=== PATIENT | female | born 1980 | race American Indian/Alaskan Native ===

== ENCOUNTER 2017-07-12 19:55 | Emergency (ER) | payer MEDICARE, MEDICAID ==
[~2017-07-12] VITALS: Ht 154.9 cm; Wt 146.9 kg
[~2017-07-12 19:55] MED LIST: ALBU18HF2 INH; ALBU8HFA PO; DIPH25CA83 PO; FAMO-128 PO; HYDR-569 PO; IBUP-1986 PO; NEBU-129 MC; ONDA4TAB12 PO; PANT-47 PO; PRED10TA PO; PRED50TA PO
[2017-07-12 20:03] VITALS: BP 157/107
[2017-07-12] MEDS ORDERED: HYDROcodone/acetaminophen 5mg/325mg tablet PO ONE (22:05)
[2017-07-12] MEDS ORDERED: ketorolac trometh inj. 60 MG/2 ML VIAL IM ONE (22:05)
[2017-07-12] MEDS ORDERED: DICL50TA8 PO (22:09)
== END 2017-07-12 22:37 | disposition home or self-care (01) ==
LOC: ER 19:56
DX: M25.561 Pain in right knee (principal); I10 Essential (primary) hypertension; J45.909 Unspecified asthma, uncomplicated; Z90.49 Acquired absence of other specified parts of digestive tract; Z95.1 Presence of aortocoronary bypass graft; Z79.899 Other long term (current) drug therapy
CPT/HCPCS: 73564; 96372; 99284; J1885

== ENCOUNTER 2017-09-25 17:48 | Inpatient (IN) | payer MEDICARE, MEDICAID ==
[~2017-09-25] VITALS: Ht 545.9 cm; Wt 150.0 kg
[~2017-09-25 17:48] MED LIST changes: +DICL50TA8 PO
[2017-09-25] MEDS ORDERED: methylPREDNISolone sod succ 125mg/2ml vial IV ONE (18:10)
[2017-09-25] MEDS ORDERED: magnesium 2GM in 50ml NS 50 ML IV ONE (18:10)
[2017-09-25] MEDS ORDERED: albuterol 2.5 MG/3 ML nebule CONTNEB PRN (18:10)
[2017-09-25] MEDS ORDERED: PRED20TA PO (18:29)
[2017-09-25] MEDS ORDERED: terbutaline 1 mg/ml inj SQ STA (19:01)
[2017-09-25] MEDS ORDERED: ipratropium/albuterol 3ml nebule NEB ONE (19:20)
[2017-09-25] MEDS ORDERED: CETI-102 PO (20:03)
[2017-09-25] MEDS ORDERED: DILT120C62 PO (20:03)
[2017-09-25] MEDS ORDERED: FLUT16SP2 BOTHNARES (20:03)
[2017-09-25] MEDS ORDERED: albuterol 2.5 MG/3 ML nebule NEB ONE (21:35)
[2017-09-25] MEDS ORDERED: acetaminophen 325mg tablet PO PRN (22:00)
[2017-09-25] MEDS ORDERED: magnesium hydroxide 30ml (MOM) UD suspension PO PRN (22:00)
[2017-09-25] MEDS ORDERED: ondansetron/PF 4mg/2ml inj IV PRN (22:00)
[2017-09-25] MEDS ORDERED: mag hydrox/Alum hydrox/simeth 30ml oral suspension PO PRN (22:00)
[2017-09-25 23:00] VITALS: BP 159/90
[2017-09-25] MEDS: methylPREDNISolone sod succ/PF 40mg inj. IV SCH (23:56)
[2017-09-25] MEDS: HYDROcodone/acetaminophen 5mg/325mg tablet PO PRN (23:58)
[2017-09-26] MEDS: albuterol 2.5 MG/3 ML nebule NEB PRN ×3 (00:20→12:04)
[2017-09-26 02:00] VITALS: BP 135/77
[2017-09-26 05:22] LABS: BASOPHILS % (AUTO) 0 % (0-1); EOSINOPHILS # (AUTO) 0.1 X10'3 (0-0.9); HEMATOCRIT 42.1 % (35.0-45.0); HEMOGLOBIN 14.3 g/dl (12.0-16.0); LYMPHOCYTES % (AUTO) 8.1 % (21-51); MEAN CORPUSCULAR HEMOGLOBIN 29.1 PG (27.0-31.0); MEAN CORPUSCULAR HGB CONC 33.9 % (33.0-36.5); MEAN CORPUSCULAR VOLUME 85.9 FL (78-98); MEAN PLATELET VOLUME 10.6 FL (7.4-10.4); MONOCYTES % (AUTO) 0.3 % (2-12); NEUTROPHILS # (AUTO) 11.6 X10'3 (1.8-7.7); NEUTROPHILS % (AUTO) 90.6 % (42-75); PLATELET COUNT 221 X10'3 (140-440); RED CELL DISTRIBUTION WIDTH 13.7 % (11.5-14.5); WHITE BLOOD COUNT 12.8 X10'3 (4.5-11.0)
[2017-09-26 05:53] LABS: ALANINE AMINOTRANSFERASE 46 U/L (12-78); ALBUMIN 3.9 G/DL (3.4-5.0); ALKALINE PHOSPHATASE 89 IU/L (46-116); ANION GAP 12 (8-16); ASPARTATE AMINO TRANSFERASE 13 U/L (10-37); BILIRUBIN,TOTAL 0.4 MG/DL (0.1-1.0); BLOOD UREA NITROGEN 10 MG/DL (7-18); BUN/CREATININE RATIO 9.3 (6.6-38.0); CALCIUM 9.8 MG/DL (8.5-10.1); CHLORIDE 104 MMOL/L (99-107); CREATININE 1.07 MG/DL (0.40-0.90); GLUCOSE 428 MG/DL (70-104); POTASSIUM 4.5 MMOL/L (3.5-5.1); SODIUM 141 MMOL/L (135-145); eGFR 58 ML/MIN
[2017-09-26 06:00] VITALS: BP 139/82
[2017-09-26] MEDS ORDERED: pantoprazole 40mg Tablet.DR PO SCH (07:30)
[2017-09-26] MEDS ORDERED: fluticasone nasal spray 16GM bottle NS SCH (08:00)
[2017-09-26] MEDS ORDERED: heparin, porcine 5000 units/ml vial SQ SCH (08:00)
[2017-09-26] MEDS ORDERED: diltiazem CD 120mg capsule (once-daily) PO SCH (08:00)
[2017-09-26] MEDS ORDERED: cetirizine 10mg tablet PO SCH (08:00)
[2017-09-26] MEDS: methylPREDNISolone sod succ/PF 40mg inj. IV SCH (08:12)
[2017-09-26] MEDS: HYDROcodone/acetaminophen 5mg/325mg tablet PO PRN (08:21)
[2017-09-26 10:00] VITALS: BP 147/93
[2017-09-26 10:03] LABS: HEMOGLOBIN A1C 7.5 % (4.5-6.2)
[2017-09-26] MEDS ORDERED: insulin Lispro (HumaLOG) vial - multi-dose SQ STA (10:13)
[2017-09-26] MEDS ORDERED: PRED20TA PO (12:48)
== END 2017-09-26 13:35 | disposition left against medical advice (07) | DRG 203 ==
LOC: ER 17:48 → ED HOLD 22:00 → ORTHO 4S 23:00
PROVIDERS: ADMIT Internal Medicine; ATTEND Family Medicine
DX: J45.901 Unspecified asthma with (acute) exacerbation (principal); I10 Essential (primary) hypertension; R73.9 Hyperglycemia, unspecified; Z53.21 Procedure and treatment not carried out due to patient leaving prior to being seen by health care provider; Z90.49 Acquired absence of other specified parts of digestive tract; Z88.8 Allergy status to other drugs, medicaments and biological substances; Z79.899 Other long term (current) drug therapy
CPT/HCPCS: 36415; 71045; 80053; 82948; 83036; 85025; 87070; 94640; 94760; 96365; 96372; 96375; 99291; J1644; J2920; J2930; J3105; J3475

== ENCOUNTER 2018-02-06 01:42 | Outpatient (CLI) | payer MEDICARE, MEDICAID ==
[~2018-02-06 01:42] MED LIST changes: -ALBU18HF2 INH; +CETI-102 PO; -DICL50TA8 PO; +DILT120C62 PO; -DIPH25CA83 PO; -FAMO-128 PO; +FLUT16SP2 BOTHNARES; -HYDR-569 PO; -ONDA4TAB12 PO; -PANT-47 PO; -PRED10TA PO; +PRED20TA PO; -PRED50TA PO
== END 2018-02-06 23:59 | disposition home or self-care (01) ==
LOC: DIABETIC 01:42
PROVIDERS: ATTEND Surgery
DX: E66.01 Morbid (severe) obesity due to excess calories (principal); E11.9 Type 2 diabetes mellitus without complications; G47.30 Sleep apnea, unspecified; I10 Essential (primary) hypertension; J45.909 Unspecified asthma, uncomplicated
CPT/HCPCS: 97802

== ENCOUNTER 2018-03-06 08:32 | Outpatient (CLI) | payer MEDICARE, MEDICAID | END 2018-03-06 23:59 | disposition home or self-care (01) | LOC: DIABETIC 08:32 | PROVIDERS: ATTEND Surgery | DX: E66.01 Morbid (severe) obesity due to excess calories (principal); E11.9 Type 2 diabetes mellitus without complications; G47.30 Sleep apnea, unspecified; I10 Essential (primary) hypertension; J45.909 Unspecified asthma, uncomplicated | CPT/HCPCS: 97802 ==

== ENCOUNTER 2018-04-01 01:38 | Outpatient (CLI) | payer MEDICARE, MEDICAID | END 2018-04-01 23:59 | disposition home or self-care (01) | LOC: DIABETIC 01:38 | PROVIDERS: ATTEND Surgery | DX: E66.01 Morbid (severe) obesity due to excess calories (principal); E11.9 Type 2 diabetes mellitus without complications; G47.30 Sleep apnea, unspecified; I10 Essential (primary) hypertension; J45.909 Unspecified asthma, uncomplicated | CPT/HCPCS: 97802 ==

== ENCOUNTER 2018-04-25 07:34 | Emergency (ER) | payer MEDICARE, MEDICAID ==
[~2018-04-25] VITALS: Ht 154.9 cm; Wt 142.0 kg
[2018-04-25 07:37] VITALS: BP 163/106
--- NOTE | 2018-04-25 07:45 | NUR ---
dr. brush at bedside.
[2018-04-25] MEDS ORDERED: ibuprofen tablet 400 MG TABLET PO ONE (07:55)
[2018-04-25] MEDS ORDERED: BENZ-16 PO (07:55)
== END 2018-04-25 08:00 | disposition home or self-care (01) ==
LOC: ER 07:35
DX: J06.9 Acute upper respiratory infection, unspecified (principal); I10 Essential (primary) hypertension; J45.909 Unspecified asthma, uncomplicated; Z90.49 Acquired absence of other specified parts of digestive tract; Z88.8 Allergy status to other drugs, medicaments and biological substances; Z79.899 Other long term (current) drug therapy
CPT/HCPCS: 99283

== ENCOUNTER 2018-06-26 00:03 | Emergency (ER) | payer MEDICARE, MEDICAID ==
[~2018-06-26] VITALS: Ht 154.9 cm; Wt 121.5 kg
[2018-06-26] MEDS ORDERED: ondansetron/PF 4mg/2ml inj IV ONE (01:45)
[2018-06-26] MEDS ORDERED: ketorolac trometh. 30mg/ml inj. IV ONE (01:45)
[2018-06-26] MEDS ORDERED: normal saline 1000ML IV soln IVB ONE (01:45)
[2018-06-26] MEDS: morphine 4 MG/ML inj SYRINge IV PRN ×2 (02:04→02:52)
[2018-06-26 02:18] LABS: URINE HCG NEGATIVE (NEG)
[2018-06-26 02:42] LABS: ALANINE AMINOTRANSFERASE 124 U/L (12-78); ALBUMIN 3.9 G/DL (3.4-5.0); ALBUMIN/GLOBULIN RATIO 1.3 (1.1-1.5); ALKALINE PHOSPHATASE 85 IU/L (46-116); ANION GAP 12 (8-16); ASPARTATE AMINO TRANSFERASE 44 U/L (10-37); BILIRUBIN,TOTAL 0.9 MG/DL (0.1-1.0); BLOOD UREA NITROGEN 8 MG/DL (7-18); BUN/CREATININE RATIO 10.7 (6.6-38.0); CALCIUM 9.5 MG/DL (8.5-10.1); CHLORIDE 100 MMOL/L (99-107); CREATININE 0.75 MG/DL (0.40-0.90); GLUCOSE 133 MG/DL (70-104); LIPASE 109 U/L (73-393); POTASSIUM 3.2 MMOL/L (3.5-5.1); SODIUM 140 MMOL/L (135-145); TOTAL CARBON DIOXIDE 27.7 MMOL/L (24-32); eGFR 87 ML/MIN
[2018-06-26 02:44] LABS: GLUCOSE, URINE NEGATIVE (Neg); KETONES,URINE >=80 mg/dl (Neg); LEUKOCYTE ESTERASE ,URINE NEGATIVE (Neg); NITRITES, URINE NEGATIVE (Neg); OCCULT BLOOD,URINE SMALL (Neg); PH,URINE 6.5 (4.8-8.0); PROTEIN,URINE 30 mg/dl (Neg)
[2018-06-26 02:45] LABS: COLOR,URINE DARK YELLOW (Yellow); UA COLLECTION TYPE CLN CATCH MIDSTREAM
[2018-06-26 02:46] LABS: CLARITY,URINE TURBID (Clear)
[2018-06-26 02:47] LABS: WBC,URINE 0-4 /HPF (0-4)
[2018-06-26 02:48] LABS: BACTERIA,URINE 3+ /HPF (Neg); CAL OXALATE CRYSTALS 2+ /HPF (NEGATIVE); MUCUS STRANDS FEW /LPF (Neg); RBC,URINE 50-100 /HPF (0-2); SQUAMOUS EPITHELIAL CELL,UR MANY /LPF (FEW)
[2018-06-26 03:10] LABS: BASOPHILS % (AUTO) 0.6 % (0-1); EOSINOPHILS # (AUTO) 0.1 X10'3 (0-0.9); EOSINOPHILS % (AUTO) 0.9 % (0-6); HEMATOCRIT 41.4 % (35.0-45.0); HEMOGLOBIN 14.4 g/dl (12.0-16.0); LYMPHOCYTES # (AUTO) 1.6 X10'3 (1.1-4.8); MEAN CORPUSCULAR HEMOGLOBIN 29.6 PG (27.0-31.0); MEAN CORPUSCULAR HGB CONC 34.6 g/dL (33.0-36.5); MEAN CORPUSCULAR VOLUME 85.4 FL (78-98); MONOCYTES # (AUTO) 0.6 X10'3 (0-0.9); NEUTROPHILS % (AUTO) 68.5 % (42-75); PLATELET COUNT 104 X10'3 (140-440); RED BLOOD COUNT 4.85 X10'6 (4.20-5.60); RED CELL DISTRIBUTION WIDTH 14.6 % (11.5-14.5); WHITE BLOOD COUNT 7.3 X10'3 (4.5-11.0)
--- NOTE | 2018-06-26 03:16 | NUR ---
back from ct scan
[2018-06-26 03:55] LABS: LARGE PLATELETS FEW; PLATELET ESTIMATE DECREASED
[2018-06-26] MEDS ORDERED: HYDR118S10 PO (04:20)
[2018-06-26 04:30] VITALS: BP 119/77
== END 2018-06-26 04:43 | disposition home or self-care (01) ==
LOC: ER 00:09
DX: N20.0 Calculus of kidney (principal); N28.1 Cyst of kidney, acquired; R10.84 Generalized abdominal pain; I10 Essential (primary) hypertension; J45.909 Unspecified asthma, uncomplicated; F17.200 Nicotine dependence, unspecified, uncomplicated; Z90.49 Acquired absence of other specified parts of digestive tract; Z98.890 Other specified postprocedural states; Z88.8 Allergy status to other drugs, medicaments and biological substances; Z79.899 Other long term (current) drug therapy
CPT/HCPCS: 36415; 74176; 80053; 81001; 81025; 83690; 85025; 96374; 96375; 96376; 99284; J1885; J2270; J2405; J7030

== ENCOUNTER 2018-06-29 01:56 | Emergency (ER) | payer MEDICARE, MEDICAID ==
[~2018-06-29] VITALS: Ht 154.9 cm; Wt 99.3 kg
[~2018-06-29 01:56] MED LIST changes: +HYDR118S10 PO
[2018-06-29 01:59] VITALS: BP 163/86
[2018-06-29] MEDS ORDERED: ondansetron 4mg rapidly disintigrating tab PO ONE (03:00)
--- NOTE | 2018-06-29 03:04 | NUR ---
Unable to obtain urine. patient complains of the pain and was only able to produce approx 1 cc
[2018-06-29] MEDS ORDERED: cyclobenzaprine 10mg tablet PO ONE (03:30)
[2018-06-29] MEDS ORDERED: morphine 4 MG/ML inj SYRINge IV ONE ×2 (03:30)
[2018-06-29] MEDS ORDERED: morphine 10mg/ml inj. IM ONE (03:40)
[2018-06-29] MEDS: morphine 2 MG/ML inj. syringe IV PRN ×2 (03:57→04:13)
[2018-06-29 04:12] LABS: CLARITY,URINE CLOUDY (Clear); COLOR,URINE AMBER (Yellow); GLUCOSE, URINE 100 mg/dl (Neg); KETONES,URINE >=80 mg/dl (Neg); LEUKOCYTE ESTERASE ,URINE NEGATIVE (Neg); NITRITES, URINE NEGATIVE (Neg); OCCULT BLOOD,URINE LARGE (Neg); PROTEIN,URINE 100 mg/dl (Neg)
[2018-06-29 04:16] LABS: UA COLLECTION TYPE CLN CATCH MIDSTREAM
== END 2018-06-29 06:02 | disposition home or self-care (01) ==
LOC: ER 01:57
DX: M54.9 Dorsalgia, unspecified (principal); I10 Essential (primary) hypertension; J45.909 Unspecified asthma, uncomplicated; F17.200 Nicotine dependence, unspecified, uncomplicated; Z90.49 Acquired absence of other specified parts of digestive tract; Z95.1 Presence of aortocoronary bypass graft; Z88.8 Allergy status to other drugs, medicaments and biological substances; Z79.899 Other long term (current) drug therapy
CPT/HCPCS: 81003; 96372; 99283; J2270

== ENCOUNTER 2024-05-29 02:16 | Emergency (ER) | payer MEDICAID, MEDICARE ==
[~2024-05-29] VITALS: Ht 154.9 cm; Wt 104.0 kg
[~2024-05-29 02:16] MED LIST changes: -CETI-102 PO; +CETI-90 PO
[2024-05-29 02:52] LABS: BASOPHILS % (AUTO) 0.5 % (0-1); EOSINOPHILS # (AUTO) 0.2 X10'3 (0-0.9); EOSINOPHILS % (AUTO) 2.5 % (0-6); HEMATOCRIT 41.4 % (35.0-45.0); HEMOGLOBIN 14.3 g/dl (12.0-16.0); LYMPHOCYTES # (AUTO) 2.1 X10'3 (1.1-4.8); LYMPHOCYTES % (AUTO) 21.9 % (21-51); MEAN CORPUSCULAR HEMOGLOBIN 31.6 PG (27.0-31.0); MEAN CORPUSCULAR HGB CONC 34.6 g/dL (33.0-36.5); MEAN CORPUSCULAR VOLUME 91.4 FL (78-98); MEAN PLATELET VOLUME 9.5 FL (7.4-10.4); MONOCYTES # (AUTO) 0.5 X10'3 (0-0.9); MONOCYTES % (AUTO) 5.2 % (2-12); NEUTROPHILS # (AUTO) 6.8 X10'3 (1.8-7.7); NEUTROPHILS % (AUTO) 69.9 % (42-75); PLATELET COUNT 180 X10'3 (140-440); RED BLOOD COUNT 4.53 X10'6 (4.20-5.60); RED CELL DISTRIBUTION WIDTH 12.7 % (11.5-14.5); WHITE BLOOD COUNT 9.7 X10'3 (4.5-11.0)
[2024-05-29 02:56] LABS: ALBUMIN 3.8 G/DL (3.4-5.0); ANION GAP 10 (8-16); BLOOD UREA NITROGEN 9 MG/DL (7-18); BUN/CREATININE RATIO 14.8 (10.0-20.0); CALCIUM 8.8 MG/DL (8.5-10.1); CHLORIDE 107 MMOL/L (99-107); CREATININE 0.61 MG/DL (0.40-0.90); GLUCOSE 115 MG/DL (70-104); POTASSIUM 3.6 MMOL/L (3.5-5.1); SODIUM 142 MMOL/L (135-145); TOTAL CARBON DIOXIDE 24.7 MMOL/L (24-32); eCRCL 91 ML/MIN; eGFR > 90 ML/MIN
[2024-05-29] MEDS: albuterol 2.5 MG/3 ML nebule NEB ONE (03:10)
[2024-05-29 03:13] VITALS: PULSE 112; RESP 17; O2SAT 98
[2024-05-29 03:20] VITALS: PULSE 111; RESP 16; O2SAT 98
[2024-05-29] MEDS: methylPREDNISolone sod succ 125mg/2ml vial IV ONE (03:54)
[2024-05-29] MEDS: ipratropium/albuterol 3ml nebule NEB STA (04:11)
[2024-05-29 04:13] VITALS: PULSE 118; RESP 16; O2SAT 98
[2024-05-29 04:19] VITALS: PULSE 111; RESP 16; O2SAT 97
[2024-05-29 04:38] VITALS: BP 152/106; PULSE 119; RESP 20; O2SAT 99
== END 2024-05-29 04:40 | disposition home or self-care (01) ==
LOC: ER 02:17
DX: J45.909 Unspecified asthma, uncomplicated (principal); R09.02 Hypoxemia; I10 Essential (primary) hypertension; Z88.8 Allergy status to other drugs, medicaments and biological substances; Z95.1 Presence of aortocoronary bypass graft; Z90.49 Acquired absence of other specified parts of digestive tract
CPT/HCPCS: 36415; 80048; 85025; 94640; 96374; 99291; J2919; 94760

== ENCOUNTER 2024-10-24 09:18 | Emergency (ER) | payer MEDICAID ==
[~2024-10-24] VITALS: Ht 152.4 cm; Wt 100.0 kg
[2024-10-24 09:25] VITALS: BP 160/110; PULSE 104; RESP 16; TEMP 97.5; O2SAT 99
--- NOTE | 2024-10-24 10:18 | RADIOLOGY REPORT ---
DI ANKLE, COMPLETE(3VW MIN), INDICATION: left ankle pain TECHNICAL DATA:Frontal , oblique and lateral views were obtained of the left ankle. COMPARISON: None FINDINGS: No fracture is identified. Joint spaces are maintained. Alignment is anatomic. Soft tissues are wit hin normal limit. IMPRESSION: No acute fracture or dislocation of the left ankle.
--- NOTE | 2024-10-24 10:27 | Physician Documentation ---
History of Present Illness ~ Chief Complaint: Ankle pain Stated Complaint: L ANKLE PAIN Time Seen by MD: 09:55 OK to notify your PCP?: Yes Primary Medical Doctor: none Source: patient, [facility] Mode of Arrival: POV Exam Limitations: no limitations HPI 43-year-old female with medial and lateral left ankle pain since yesterday after she rolled her ankle. She did not actually have a falls she states she caught her self before falling. Associated swelling on the outside of her ankle. States when I was younger used to do this a lot and I just want to make sure I had an break my ankle. She is able to weight bear on her ankle a little bit but not fully in his requesting a note for work. Tetanus witin 5 years: Yes Medication Reconciliation Allergies: Coded Allergies: lisinopril (Verified Allergy, Unknown, 10/24/24) Scheduled Cetirizine HCl (Zyrtec), 1 TAB PO DAILY, (Reported) Diltiazem HCl (Diltiazem 24Hr Cd), 1 CAP PO DAILY, (Reported) Fluticasone Propionate (Flonase), 2 SPRAYS BOTHNARES DAILY, (Reported) Ibuprofen (Ibuprofen), 1 TAB PO Q8H Prednisone* (Prednisone*), 1 TAB PO DAILY Scheduled PRN Hydrocodone/Acetaminophen (Hydrocodon-Acetamin 7.5-325/15), 15 ML PO Q8HPRN PRN for pain albuterol inhaler (Pro-Air Inhaler), 1-2 PUFFS PO Q4H PRN for SOB or wheezing Durable Medical Equipment Nebulizer (Altera Nebulizer), 1 EACH , (DME) Past Medical History Past Medical History: No Pertinent History, Hypertension, Asthma Past Surgical History: cholecystectomy, other Patient History: (CABG) Coronary artery bypass grafting (Cancer) Malignant carcinoid tumor GRANDFATHER OR GRANDMOTHER, Onset:50's - 60 Asthma MOTHER, Onset:Unknown FAMILY/OTHER, Onset:Infancy No Family History of: (CAD) Coronary arteriosclerosis Alcohol Use: Occasionally Drug Use: none Lives with: Spouse Lives In: Home Occupation: disabled Review of Systems All Other Systems at this time: Reviewed and Negative Physical Exam Vital Signs: Temperature: 97.5, Source: Temporal, Heart Rate: 104, Respiratory Rate: 16, BP: 160/110, Pulse Oximetry: 99, Weight: 100.000 Oxygen Flow Rate: 0 Physical Exam General Appearance: Alert, WD/WN. NAD. HEENT: NCAT, PERRL, EOMI. Neck: Supple, trachea midline. Cardiovascular: RRR. No m/r/g. Lungs: CTAB. Breathing unlabored Extremities: Left lateral malleolus there is some swelling and very faint ecchymosis, no erythema skin intact areas tender to palpation. Medial malleolus no swelling areas tender to palpation. Achilles tendon nontender normal inspection. No tenderness as the heel or plantar fascia or metatarsals. Normal inspection and exam of left foot. Skin: Warm/dry, normal color Neurological: Alert and oriented x4, ambulating with slight limp favoring right leg. Psychiatric: Affect congruent with mood. Procedures Procedures Discussed placing her in a walking boot our patient felt that this was overkill." Progress Progress Note Left ankle x-ray three-view negative for fracture and dislocation Results/Orders Reviewed/noted all lab results: Yes Results/Orders Vital Signs 10/24/24 09:25 Temp 97.5 Pulse 104 Resp 16 B/P (MAP) 160/110 Pulse Ox 99 O2 Flow Rate 0 Medical Decision Making Ankle Diff Dx:Considerations: Include: Abrasion, Arthritis, Contusion, DJD, Fracture-metatarsal, Fracture-fibula, Fracture-tarsal, Fracture-tibia, Gout, Hematoma, Laceration, Malunion, Neurovascular injury, Nonunion, Open fracture, Osteomyelitis, Rheumatoid arthritis, Sprain, Septic, Ulcer Departure Time of Disposition: 10:24 Disposition: 01 HOME / SELF CARE / HOMELESS Impression: Primary Impression: Sprain of ankle Qualified Codes: S93.402A - Sprain of unspecified ligament of left ankle, initial encounter Condition: Stable Discharge Instructions: Ankle Pain Additional Instructions: Ice and elevate area of pain gradually advance activity as tolerated. Departure Forms: Excuse form Work or School Excused From: Work Excuse beginning now through the following date: Oct 26, 2024 May Return but still avoid physical Activity from now until: Oct 27, 2024 Referrals: NO PRIMARY CARE PROVIDER (PCP) Education Educated: Patient Educated regarding: diagnosis, treatment, need for follow up Signature Scribe Signature: x Attestation: DELIA Lorenzana Oct 24, 2024 10:27
== END 2024-10-24 10:52 | disposition home or self-care (01) ==
LOC: ER 09:19
DX: S93.402A Sprain of unspecified ligament of left ankle, initial encounter (principal); Z88.8 Allergy status to other drugs, medicaments and biological substances; Z90.49 Acquired absence of other specified parts of digestive tract; Z95.1 Presence of aortocoronary bypass graft; X50.1XXA Overexertion from prolonged static or awkward postures, initial encounter; Y93.89 Activity, other specified; Y92.89 Other specified places as the place of occurrence of the external cause; Y99.8 Other external cause status
CPT/HCPCS: 73610; 99283

== ENCOUNTER 2025-04-25 17:58 | Emergency (ER) | payer SELFPAY ==
[~2025-04-25] VITALS: Ht 154.9 cm; Wt 98.3 kg
[~2025-04-25 17:58] MED LIST changes: +ALBU18HF2 IH
--- NOTE | 2025-04-25 18:12 | Physician Documentation ---
History of Present Illness ~ Chief Complaint: Bite-insect Stated Complaint: SPIDER BITE Time Seen by MD: 18:10 Primary Medical Doctor: none HPI Patient is a very pleasant 44-year-old female that presents to the emergency department for evaluation of what she believes started as a bite a couple of days ago. Patient today presents with a large area of erythema and induration with a possible abscess to the posterior right elbow. Patient denies fever chills nausea vomiting diarrhea at this time. Patient reports that she has been visiting her mom in the hospital over the last couple of days and has been cleaning the area with alcohol. Patient believes that she may has been bitten by a spider but is unsure. Patient denies any other symptoms at this time. Patient reports an allergy to lisinopril. Tetanus within 5 years?: Yes Medication Reconciliation Allergies: Coded Allergies: lisinopril (Verified Allergy, Unknown, 04/25/25) Scheduled Albuterol Sulfate (Ventolin Hfa), 2 PUFFS IH 5XD Cetirizine HCl (Zyrtec), 1 TAB PO DAILY, (Reported) Diltiazem HCl (Diltiazem 24Hr Cd), 1 CAP PO DAILY, (Reported) Fluticasone Propionate (Flonase), 2 SPRAYS BOTHNARES DAILY, (Reported) Ibuprofen (Ibuprofen), 1 TAB PO Q8H Prednisone* (Prednisone*), 1 TAB PO DAILY Prednisone* (Prednisone*), 1 TAB PO DAILY Scheduled PRN Hydrocodone/Acetaminophen (Hydrocodon-Acetamin 7.5-325/15), 15 ML PO Q8HPRN PRN for pain albuterol inhaler (Pro-Air Inhaler), 1-2 PUFFS PO Q4H PRN for SOB or wheezing Durable Medical Equipment Nebulizer (Altera Nebulizer), 1 EACH [facility], (DME) Past Medical History Past Medical History: No Pertinent History, Hypertension, Asthma Past Surgical History: cholecystectomy, other Patient History: (CABG) Coronary artery bypass grafting (Cancer) Malignant carcinoid tumor GRANDFATHER OR GRANDMOTHER, Onset:50's - 60 Asthma MOTHER, Onset:Unknown FAMILY/OTHER, Onset:Infancy No Family History of: (CAD) Coronary arteriosclerosis Alcohol Use: Occasionally Drug Use: none Lives with: Spouse Lives In: Home Occupation: disabled Review of Systems ROS As stated above in the HPI, otherwise all systems are reviewed and negative. Physical Exam Vital Signs: Temperature: 97.4, Source: Temporal, Heart Rate: 100, Respiratory Rate: 16, BP: 153/106, Pulse Oximetry: 100, Weight: 98.300 Oxygen Flow Rate: 0 Physical Exam VITALS: Reviewed and as above. GENERAL: Alert, no apparent distress. MUSCULOSKELETAL No deformities, edema noted to the posterior aspect of the right elbow. SKIN: Warm and dry, edema erythema moderate area of induration with possible abscess noted to the right posterior elbow, no drainage noted at this time. NEURO: Oriented x4, No motor or sensory deficit PSYCH: Normal mood and affect, no agitation Progress Results/Orders Results/Orders Orders - PETRA FUENTES General Nursing Order (04/25/25 18:19) Completed Orders - PETRA FUENTES [employer] Lidocaine 1% 30ml Vial (Xylocaine 1% Via (04/25/25 18:14) Cephalexin Capsule (Keflex Capsule) (04/25/25 19:30) Sulfamethox/Trimetho. Ds Tab (Septra Ds (04/25/25 19:30) Vital Signs 04/25/25 18:04 Temp 97.4 Pulse 100 Resp 16 B/P (MAP) 153/106 Pulse Ox 100 O2 Flow Rate 0 Medical Decision Making Additional information obtaine: other Findings Chief Complaint: Right posterior elbow abscess, possible spider bite History of Present Illness: 44-year-old female presenting with 2-day history of suspected bite to right posterior elbow, now with large area of erythema, induration, and possible abscess formation. Patient denies fever, chills, nausea, vomiting, or diarrhea. Recent hospital visitation to see mother. Has been self-treating with alcohol cleansing. Medical Decision Making: Number of Diagnoses/Management Options: Moderate complexity. Patient presents with purulent skin and soft tissue infection requiring procedural intervention. Differential diagnosis includes cutaneous abscess secondary to Staphylococcus aureus (including MRSA), possible early cellulitis with abscess formation, and less likely arthropod bite with secondary infection. Amount/Complexity of Data: Moderate. Clinical examination revealed fluctuant abscess with surrounding erythema and induration. Incision and drainage performed with expression of moderate purulent drainage and deloculation. Wound culture would be reasonable but treatment initiated empirically given typical presentation. Risk of Complications: Moderate risk. Patient has significant residual induration despite drainage, which increases risk of treatment failure or recurrence. Adjunctive antibiotic therapy indicated given extent of surrounding cellulitis and induration. Dual antibiotic coverage with cephalexin and trimethoprim-sulfamethoxazole initiated to provide coverage for both MRSA and streptococcal species, as the presence of significant surrounding erythema and induration makes it difficult to distinguish between pure abscess and concurrent cellulitis. Procedure Performed: Incision and drainage of right posterior elbow abscess with deloculation. Quarter-inch iodoform packing placed. Wound dressed appropriately. No immediate complications. Treatment Plan: Cephalexin 500 mg PO QID for 7-10 days Trimethoprim-sulfamethoxazole DS 1 tablet PO BID for 7-10 days Wound care instructions provided Keep wound clean and dry, may shower with waterproof dressing Iodoform packing to remain in place until wound check Follow-Up: Wound check with packing removal in 2-3 days with primary care provider or return to ED Return precautions discussed including worsening erythema, fever, increased pain, purulent drainage, or systemic symptoms Patient Education: Discussed signs and symptoms of worsening infection, importance of medication compliance, proper wound care, and need for timely fol low-up. Patient verbalized understanding and agreement with plan. Overall Medical Decision Making Complexity: Moderate Differential Dx:Considerations: Include: Abrasion, Allergic reaction, Anaphylaxis, Cellulitis, Contusion, Fracture, Hematoma, Insect envenomation, Laceration, Neurovascular injury, Punture wound, Retained foreign body, Urticaria, Other Departure Disposition: 01 HOME / SELF CARE / HOMELESS Impression: Primary Impression: Abscess Additional Impression: Cellulitis Condition: Stable Discharge Instructions: Abscess, Care After, Cellulitis, Adult Referrals: NO PRIMARY CARE PROVIDER (PCP) Prescriptions Cephalexin*Monohydrate* (Keflex*) 500 Mg Capsule 1 CAP PO QID for 7 Days, #28 CAP Prov: PETRA FUENTES 04/25/25 Sulfamethoxazole/Trimethoprim (Bactrim Ds Tablet) 800 Mg-160 Mg Tablet 1 TAB PO Q12H for 10 Days, #20 TAB Prov: PETRA FUENTES 04/25/25 Education Educated: Patient Educated regarding: diagnosis, treatment, need for follow up Signature Scribe Signature: A Attestation: Scribed for Petra Fuentes by SANTOSH High . 04/25/25 19:48 PETRA FUENTES Apr 25, 2025 18:12
[2025-04-25] MEDS: LIDOcaine 1% 30ml preserv. free vial IJ STA (18:44)
[2025-04-25] MEDS ORDERED: SULF1TAB49 PO (19:47)
[2025-04-25] MEDS ORDERED: CEPH-585 PO (19:47)
[2025-04-25] MEDS: sulfamethoxazole/trimethoprim DS (800/160mg) tablet PO ONE (19:47)
[2025-04-25 19:52] VITALS: BP 150/85; PULSE 96; RESP 16; TEMP 97.4; O2SAT 98
== END 2025-04-25 19:54 | disposition home or self-care (01) ==
LOC: ER 17:59
DX: L02.413 Cutaneous abscess of right upper limb (principal); L03.113 Cellulitis of right upper limb; I10 Essential (primary) hypertension; Z95.1 Presence of aortocoronary bypass graft; Z90.49 Acquired absence of other specified parts of digestive tract; Z88.8 Allergy status to other drugs, medicaments and biological substances; Z79.899 Other long term (current) drug therapy; Z72.89 Other problems related to lifestyle
CPT/HCPCS: 10060; 99283; A6266; A6258; A6449

== ENCOUNTER 2025-04-26 06:44 | Emergency (ER) | payer SELFPAY ==
[~2025-04-26] VITALS: Ht 154.9 cm; Wt 97.7 kg
[~2025-04-26 06:44] MED LIST changes: +CEPH-585 PO; +SULF1TAB49 PO
[2025-04-26 06:48] VITALS: BP 150/94; PULSE 98; RESP 18; TEMP 98.3; O2SAT 100
== END 2025-04-26 10:21 | disposition left against medical advice (07) ==
LOC: ER 06:45
DX: M79.89 Other specified soft tissue disorders (principal); Z88.8 Allergy status to other drugs, medicaments and biological substances; Z53.21 Procedure and treatment not carried out due to patient leaving prior to being seen by health care provider
CPT/HCPCS: 99281